=== PATIENT | male | born 2000 | race Caucasian/White ===

== ENCOUNTER 2021-09-01 04:53 | Day surgery (SDC) | payer BC ==
[2021-08-30 09:33] VITALS: BMI 24.9
[2021-09-01 10:00] VITALS: TEMP 97
[2021-09-01 10:50] VITALS: BP 140/75; PULSE 60
== END 2021-09-01 10:45 | disposition home or self-care (01) ==
LOC: JASU-ENDO 04:53
PROVIDERS: ATTEND Internal Medicine Gastroenterology
PROC: 0DB68ZX Excision of Stomach, Via Natural or Artificial Opening Endoscopic, Diagnostic (ICD-10-PCS; 2021-09-01)
PROC: 0DB28ZX Excision of Middle Esophagus, Via Natural or Artificial Opening Endoscopic, Diagnostic (ICD-10-PCS; 2021-09-01)
PROC: 0DB38ZX Excision of Lower Esophagus, Via Natural or Artificial Opening Endoscopic, Diagnostic (ICD-10-PCS; 2021-09-01)
PROC: 0DB98ZX Excision of Duodenum, Via Natural or Artificial Opening Endoscopic, Diagnostic (ICD-10-PCS; principal; 2021-09-01 10:00)
DX: K29.50 Unspecified chronic gastritis without bleeding (principal); K21.00 Gastro-esophageal reflux disease with esophagitis, without bleeding; R10.13 Epigastric pain
CPT/HCPCS: 88305-TC; 88342-TC